=== PATIENT | female | born 1995 | race Two or more races ===

== ENCOUNTER 2021-08-29 21:59 | Emergency (ER) | payer OTHER ==
[~2021-08-29] VITALS: Ht 154.9 cm; Wt 65.8 kg
[2021-08-29] MEDS ORDERED: FOLIC ACID1 MG PO (22:09)
[2021-08-29] MEDS ORDERED: METOCLOPRAMIDE10 MG PO (23:21)
[2021-08-29] MEDS ORDERED: MIRALAX510 GM PO (23:21)
== END 2021-08-30 00:44 | disposition home or self-care (01) ==
LOC: ER 21:59
DX: K59.00 Constipation, unspecified (principal)